=== PATIENT | female | born 2000 | race Hispanic/Latino ===

== ENCOUNTER 2021-04-18 10:11 | Outpatient (CLI) | payer BC | END 2021-04-18 10:12 | disposition home or self-care (01) | LOC: CSHRAD 10:11 | PROVIDERS: ATTEND Family Medicine | DX: R09.89 Other specified symptoms and signs involving the circulatory and respiratory systems (principal) | CPT/HCPCS: 71046 ==

== ENCOUNTER 2022-03-02 13:38 | Outpatient (CLI) | payer OTHER | END 2022-03-02 13:39 | disposition home or self-care (01) | LOC: CSHULT 13:38 | PROVIDERS: ATTEND Advanced Practice Midwife | DX: G71.00 Muscular dystrophy, unspecified (principal) | CPT/HCPCS: 93306 ==

== ENCOUNTER 2022-04-20 11:27 | Emergency (ER) | payer OTHER ==
[2022-04-20 13:16] LABS: #Eosinphils 0.1 10x3/uL (0.0-0.5); #Monocytes 0.8 10x3/uL (0.0-1.1); #Neutrophils 13.5 10x3/uL (1.5-8.4); %Basophils 0.2 % (0.0-2.0); %Eosinophils 0.3 % (0.0-6.0); %Lymphocytes 8.6 % (18.0-47.0); %Monocytes 5.1 % (0.0-10.0); %Neutrophils 85.3 % (40.0-75.0); Hemoglobin 12.1 g/dL (12.0-15.5); Mean Corpuscular HGB CONC 34.2 g/dL (32.0-36.0); Mean Corpuscular Hemoglobin 30.4 pg (27.0-33.0); Mean Corpuscular Volume 88.9 fl (81.6-98.3); Mean Platelet Volume 9.7 fl (7.4-10.4); Platelet Count 261 10x3/uL (150-450); RBC Distribution Width 13.6 % (11.5-14.5); Red Blood Cell (RBC) Count 3.98 10x6/uL (3.90-5.03); White Blood Cell (WBC) Count 15.8 10x3/uL (3.5-10.5)
[2022-04-20 13:24] LABS: ALT (SGPT) 50 U/L (8-55); AST (SGOT) 46 U/L (5-34); Albumin 3.9 g/dL (3.5-5.0); Alkaline Phosphatase 177 U/L (40-110); Anion Gap 19 mmol/L (10-20); BUN (Urea Nitrogen) 17 mg/dL (7.0-18.7); Calc. Creatinine Clearance 0 mL/min (70-130); Calcium 9.1 mg/dL (7.8-10.44); Carbon Dioxide 18 mmol/L (22-29); Chloride 107 mmol/L (98-107); Estimated GFR 133; Globulin 3.6 g/dL (2.4-3.5); Glucose 74 mg/dL (70-105); Magnesium 2.1 mg/dL (1.6-2.6); Potassium 3.6 mmol/L (3.5-5.1); Protein, Total 7.5 g/dL (6.0-8.3); Sodium 140 mmol/L (136-145)
[2022-04-20] MEDS ORDERED: Prochlorperazine 10 MG/2 ML VIAL ONE (14:13)
[2022-04-20] MEDS ORDERED: Dexamethasone 10 MG/ML VIAL ONE (14:13)
[2022-04-20] MEDS ORDERED: diphenhydrAMINE 50 MG/ML VIAL ONE (14:14)
[2022-04-20] MEDS ORDERED: Ketorolac Tromethamine 30 MG/ML VIAL ONE (14:50)
[2022-04-20 15:07] LABS: INR-International Normal Ratio 0.9; PTT 25.5 sec (22.0-33.0); Prothrombin Time 9.5 sec (9.5-12.1)
== END 2022-04-20 17:30 | disposition home or self-care (01) ==
LOC: CSHERS 11:27
DX: R51.9 Headache, unspecified (principal); R11.2 Nausea with vomiting, unspecified; Z79.899 Other long term (current) drug therapy
CPT/HCPCS: 70450; 80053; 83735; 85025; 85610; 85730; 96361; 96374; 96375; J0780; J1100; J1200; J1885